=== PATIENT | male | born 1955 | race Caucasian/White ===

== ENCOUNTER 2023-09-13 17:59 | Emergency (ER) | payer SELFPAY ==
[~2023-09-13] VITALS: Ht 170.2 cm; Wt 85.0 kg
[2023-09-13 18:10] VITALS: BP 132/82; PULSE 88; RESP 18; O2SAT 100
[2023-09-13] MEDS ORDERED: IBUPROFEN 600MG TABLET PO ONE (19:15)
[2023-09-13] MEDS ORDERED: ACET-2708 MT (21:07)
[2023-09-13] MEDS ORDERED: NAPR220C61 MT (21:07)
== END 2023-09-13 22:02 | disposition home or self-care (01) ==
LOC: ER 17:59
DX: S92.312A Displaced fracture of first metatarsal bone, left foot, initial encounter for closed fracture (principal); S92.322A Displaced fracture of second metatarsal bone, left foot, initial encounter for closed fracture; S92.332A Displaced fracture of third metatarsal bone, left foot, initial encounter for closed fracture; X58.XXXA Exposure to other specified factors, initial encounter; Y93.89 Activity, other specified; Y92.89 Other specified places as the place of occurrence of the external cause; Y99.8 Other external cause status
CPT/HCPCS: 73610; 73630; 29515; 99284; Z7610